=== PATIENT | female | born 1930 | race Asian ===

== ENCOUNTER 2020-12-06 17:55 | Emergency (ER) | payer MEDICARE, OTHER ==
[~2020-12-06] VITALS: Ht 162.6 cm; Wt 59.1 kg
[~2020-12-06 17:55] MED LIST: MEMA10TA11 PO; METF-960 PO; PIOG15TA6 PO; RALO60 PO; SITA25 PO
[2020-12-06 18:13] LABS: GLUCOSE,POINT OF CARE 523 MG/DL (70-110)
[2020-12-06] MEDS ORDERED: 0.9% SODIUM CHLORIDE 10 ML SYRINGE IVP PRN (19:00)
[2020-12-06 19:30] LABS: BASOPHILS % (AUTO) 0.2 % (0.0-2.0); EOSINOPHILS % (AUTO) 0 % (1.0-6.0); HEMATOCRIT 38.8 % (36-46); HEMOGLOBIN 12.6 g/dL (12.0-16.0); LYMPHOCYTES # (AUTO) 0.9 K/uL (1.0-4.8); LYMPHOCYTES % (AUTO) 9.6 % (22.0-44.0); MEAN CORPUSCULAR HEMOGLOBIN 33.5 pg (26.0-34.0); MEAN CORPUSCULAR HGB CONC 32.5 G/dL (31.0-37.0); MEAN CORPUSCULAR VOLUME 103 fL (80-100); MONOCYTES # (AUTO) 0.2 K/uL (0.1-1.0); MONOCYTES % (AUTO) 2.5 % (2.0-9.0); NEUTROPHILS # (AUTO) 8.1 K/uL (1.8-7.7); PLATELET COUNT (AUTO) 173 K/uL (150-450); RED BLOOD CELL COUNT(AUTO) 3.76 MIL/uL (4.00-5.20); RED CELL DISTRIBUTION WIDTH 14.6 % (11.5-14.5)
[2020-12-06 19:31] LABS: NEUTROPHILS % (AUTO) 87.7 % (40.0-70.0)
[2020-12-06 19:37] LABS: COVID AG,FIA SOURCE NASOPHARYNGEAL
[2020-12-06 19:44] LABS: D-DIMER 1.42 mg/L FEU (0.00-0.50); PROTHROMBIN TIME 10.7 SEC (9.4-11.6)
[2020-12-06] MEDS ORDERED: FUROSEMIDE 40 MG/4 ML VIAL IVP ONE (19:45)
[2020-12-06 19:52] LABS: B-TYPE NATRIURETIC PEPTIDE 2020 pg/mL (0-100)
[2020-12-06 19:58] LABS: LACTIC ACID 6.1 mmol/L (0.4-2.0)
[2020-12-06] MEDS ORDERED: LEVOFLOXACIN 500 MG/D5% WATER 100 ML IV ONE (20:00)
[2020-12-06 20:07] LABS: INFLUENZA TYPE A NEGATIVE FOR TYPE A (NEGATIVE); INFLUENZA TYPE B NEGATIVE FOR TYPE B (NEGATIVE)
[2020-12-06 20:11] LABS: ABG A-A DIFF O2 615.5 mmHg (10-20.0); ABG BASE EXCESS -16.1 mmol/L (-2.0-3.0); ABG CARBOXYHEMOGLOBIN 0.5 % (0.0-1.5); ABG METHEMOGLOBIN 0.3 % (0.0-1.5); ABG OXYGEN CONTENT 16.7 mL/dL (15.0-23.0); ABG OXYGEN SATURATION 90.5 % (95.0-98.0); ABG OXYHEMOGLOBIN 89.8 % (94.0-100.0); ABG PCO2 32 mmHg (35-45); ABG TOTAL HEMOGLOBIN 13.2 G/dL (12.0-18.0); PO2, ARTERIAL BG 67.9 mmHg (71.0-79.0); SOURCE, BLOOD GAS ARTERIAL; TEMPERATURE, FAHRENHEIT, BG 97.2 FAHREN (96.0-98.6)
[2020-12-06 20:14] LABS: ABG PH 7.198 (7.35-7.450); SITE, BLOOD GAS LFT RADIAL
[2020-12-06 20:15] VITALS: BP 145/35
[2020-12-06 20:15] LABS: O2 DEVICE,BLOOD GAS NON REBREATHER (ROOM AIR)
[2020-12-06] MEDS ORDERED: ASPIRIN 81 MG CHEWABLE TABLET PO ONE (20:30)
[2020-12-06] MEDS ORDERED: NITROGLYCERIN 2% (1 GM=INCH) PACKET TP ONE (20:30)
[2020-12-06] MEDS ORDERED: HEPARIN SODIUM 25000 UNITS/D5W 250 ML IV PRN (20:30)
[2020-12-06 20:51] LABS: ALANINE AMINOTRANSFERASE 31 U/L (12-78); ALBUMIN 3.3 g/dL (3.4-5.0); ALKALINE PHOSPHATASE 52 U/L (46-116); ANION GAP 20 mmol/L (8-16); ASPARTATE AMINOTRANSFERASE 127 U/L (15-37); BILIRUBIN,TOTAL 0.5 mg/dL (0.1-1.0); CALCIUM, TOTAL 8.9 mg/dL (8.8-10.5); CARBON DIOXIDE 15 mmol/L (22-29); CHLORIDE 87 mmol/L (98-107); CREATINE KINASE, TOTAL ONLY 872 U/L (26-192); CREATININE 1.45 mg/dL (0.60-1.30); FERRITIN 86 ng/mL (8-252); GLOMERULAR FILTR. RATE CALC 34 mL/min (>60); POTASSIUM 4.8 mmol/L (3.5-5.1); TOTAL PROTEIN, SERUM 7.3 g/dL (6.4-8.2); UREA NITROGEN, BLOOD 24 mg/dL (7-18)
[2020-12-06 20:56] LABS: GLUCOSE,RANDOM 626 mg/dL (70-110); SODIUM SERUM 122 mmol/L (136-145)
== END 2020-12-07 01:37 ==
LOC: EMS 17:57
DX: I21.4 Non-ST elevation (NSTEMI) myocardial infarction (principal); E87.1 Hypo-osmolality and hyponatremia; I46.9 Cardiac arrest, cause unspecified; A41.9 Sepsis, unspecified organism; E11.9 Type 2 diabetes mellitus without complications; E78.00 Pure hypercholesterolemia, unspecified; J18.9 Pneumonia, unspecified organism; Z20.822 Contact with and (suspected) exposure to COVID-19; Z79.84 Long term (current) use of oral hypoglycemic drugs; Z79.899 Other long term (current) drug therapy
CPT/HCPCS: 31500; 36415; 36600; 71045; 80053; 82550; 82728; 82805; 82962; 83605; 83880; 84145; 84484; 85025; 85379; 85610; 85730; 87040; 87426; 87804; 92950; 93005; 96365; 96375; 99291; J1940; J1956; 94002